=== PATIENT | female | born 1995 | race African-American/Black ===

== ENCOUNTER 2021-11-02 10:00 | Emergency (ER) | payer MEDICAID ==
[~2021-11-02] VITALS: Ht 167.6 cm; Wt 61.0 kg
[2021-11-02] MEDS ORDERED: ACETAMINOPHEN 325MG TABLET PO STA (10:17)
[2021-11-02] MEDS ORDERED: SODIUM CHLORIDE 0.9% 1,000 ML IV ONE (10:30)
[2021-11-02 10:45] LABS: BASOPHILS % 0.1 % (0.0-2.0); EOSINOPHILS % 0.3 % (0.0-5.0); HEMATOCRIT. 33.6 % (36.0-48.0); HEMOGLOBIN. 10.9 g/dL (12.0-16.0); LYMPHOCYTES % 8.6 % (20.0-50.0); MEAN CORPUSCULAR HEMOGLOBIN 27.5 pg (28.0-32.0); MEAN CORPUSCULAR VOLUME 84.3 fL (81.0-99.0); MEAN PLATELET VOLUME 7.8 fl (7.4-10.4); MONOCYTES % 9.4 % (2.0-8.0); NEUTROPHILS % 81.6 % (40.0-76.0); PLATELET 300 x1000/uL (130-400); RED BLOOD CELL COUNT 3.98 mill/uL (4.2-5.4); RED CELL DISTRIBUTION WIDTH 16.7 % (11.6-14.6)
[2021-11-02] MEDS ORDERED: MORPHINE SULFATE 4 MG/ML CPJ (NOT FOR IM USE) IV ONE ×2 (10:45→12:30)
[2021-11-02 10:46] LABS: CHLORIDE 108 mEq/L (98-107)
[2021-11-02 10:51] LABS: ETHANOL BLOOD < 10 mg/dL; INR 1.1; PROTHROMBIN TIME 11.5 sec (9.6-11.0)
[2021-11-02 11:03] LABS: HCG SCREEN NEGATIVE
[2021-11-02] MEDS ORDERED: ACETAMINOPHEN 325MG TABLET PO ONE (12:30)
[2021-11-02] MEDS ORDERED: METOCLOPRAMIDE HCL 10MG/2ML VIAL IV ONE (12:30)
[2021-11-02] MEDS ORDERED: KETOROLAC 15MG/ML VIAL IV ONE (12:30)
[2021-11-02] MEDS ORDERED: KETOROLAC 30MG/ML VIAL IV SCH (12:30)
[2021-11-02 16:19] VITALS: BP 114/62
== END 2021-11-02 16:19 | disposition home or self-care (01) ==
LOC: ER 10:15
DX: R10.84 Generalized abdominal pain (principal)
CPT/HCPCS: 36415; 76830; 76856; 80053; 80320; 83605; 83690; 84703; 85025; 85610; 96361; 96374; 96375; 96376; 99285; J1885; J2270; J2765; J7030; G0480

== ENCOUNTER 2021-11-04 20:43 | Emergency (ER) | payer MEDICAID ==
[~2021-11-04] VITALS: Ht 157.5 cm; Wt 57.0 kg
[2021-11-04] MEDS ORDERED: HALOPERIDOL LACTATE 5MG/ML VIAL IM ONE (23:45)
[2021-11-05 00:11] LABS: HEMATOCRIT 31.9 % (36.0-48.0); HEMOGLOBIN 10.3 g/dL (12.0-16.0); MEAN CORPUSCULAR HEMOGLOBIN 26.9 pg (28.0-32.0); PLATELET 324 x1000/uL (130-400); RED BLOOD CELL COUNT 3.84 mill/uL (4.2-5.4); RED CELL DISTRIBUTION WIDTH 16.5 % (11.6-14.6)
[2021-11-05 00:16] LABS: CHLORIDE 109 mEq/L (98-107)
[2021-11-05 00:20] LABS: ETHANOL BLOOD < 10 mg/dL
[2021-11-05 00:26] LABS: CLARITY URINE CLEAR (CLEAR); COLOR URINE DARK YELLOW (YELLOW); KETONES URINE 4+ (NEGATIVE); LEUKOCYTE ESTERASE URINE 1+ (NEGATIVE); NITRITE URINE NEGATIVE (NEGATIVE); OCCULT BLOOD URINE NEGATIVE (NEGATIVE); PH URINE >=9.0 (4.5-8.0); PROTEIN URINE 1+ (NEGATIVE); SPECIFIC GRAVITY URINE 1.028 (1.005-1.030)
[2021-11-05 00:40] LABS: *AMPHETAMINES SCREEN URINE NEGATIVE (NEGATIVE); *BARBITURATES SCREEN URINE NEGATIVE (NEGATIVE); *BENZODIAZEPINES SCREEN URINE NEGATIVE (NEGATIVE); *COCAINE SCREEN URINE NEGATIVE (NEGATIVE); METHADONE URINE SCREEN NEGATIVE (NEGATIVE); PHENCYCLIDINE URINE SCREEN NEGATIVE (NEGATIVE)
[2021-11-05 00:44] LABS: CANNABINOID URINE SCREEN PRESUMTIVE POSITIVE (NEGATIVE); OPIATES URINE SCREEN PRESUMTIVE POSITIVE (NEGATIVE)
[2021-11-05] MEDS ORDERED: KETOROLAC 30MG/ML VIAL IV NR ×2 (01:00→02:45)
[2021-11-05 01:32] LABS: HEMATOCRIT 29.4 % (36.0-48.0); HEMOGLOBIN 9.7 g/dL (12.0-16.0); MEAN CORPUSCULAR HEMOGLOBIN 27.4 pg (28.0-32.0); MEAN CORPUSCULAR VOLUME 82.8 fL (81.0-99.0); PLATELET 289 x1000/uL (130-400); RED BLOOD CELL COUNT 3.55 mill/uL (4.2-5.4); RED CELL DISTRIBUTION WIDTH 16.8 % (11.6-14.6)
[2021-11-05 01:48] LABS: CHLORIDE 110 mEq/L (98-107)
[2021-11-05] MEDS ORDERED: KETOROLAC 15MG/ML VIAL IV ONE (02:30)
[2021-11-05] MEDS: HALOPERIDOL LACTATE 5MG/ML VIAL IM NR ×2 (02:40→02:48)
[2021-11-05 04:00] VITALS: BP 110/70
[2021-11-05] MEDS ORDERED: DOXYCYCLINE HYCLATE 100 MG/VIAL IV ONE (04:00)
[2021-11-05] MEDS ORDERED: DOXYCYCLINE 100MG in DEXTROSE 5% WATER 100ML IV NR (04:00)
[2021-11-05] MEDS ORDERED: AMPICILLIN SOD/SULBACTAM NA 3 G in SODIUM CHLORIDE 0.9% 100 ML IV SCH (04:00)
[2021-11-05] MEDS ORDERED: METR500T MT (04:20)
[2021-11-05] MEDS ORDERED: DOXY100C5 MT (04:20)
[2021-11-05] MEDS ORDERED: IOHEXOL-300 100 ML BOTTLE ONE (05:41)
== END 2021-11-05 05:10 | disposition home or self-care (01) ==
LOC: ER 20:43
DX: N70.93 Salpingitis and oophoritis, unspecified (principal)
CPT/HCPCS: 36415; 74177; 80053; 80305; 80320; 81003; 81025; 83690; 85027; 87040; 96365; 96368; 96372; 96375; 96376; 99285; J0295; J1630; J1885; J3490; J7050; J7060; Q9967; G0480